=== PATIENT | female | born 1950 | race Two or more races ===

== ENCOUNTER 2024-05-21 15:19 | Emergency (ER) | payer OTHER ==
[~2024-05-21] VITALS: Ht 162.6 cm; Wt 61.2 kg
== END 2024-05-21 18:41 | disposition home or self-care (01) ==
LOC: ER 15:22
DX: L08.9 Local infection of the skin and subcutaneous tissue, unspecified (principal); T14.8XXA Other injury of unspecified body region, initial encounter; S80.812A Abrasion, left lower leg, initial encounter; W19.XXXA Unspecified fall, initial encounter; Y93.89 Activity, other specified; Y92.89 Other specified places as the place of occurrence of the external cause; Y99.8 Other external cause status; Z88.2 Allergy status to sulfonamides

== ENCOUNTER 2024-06-06 14:40 | Emergency (ER) | payer OTHER ==
[~2024-06-06] VITALS: Ht 162.6 cm; Wt 56.7 kg
[2024-06-06] MEDS ORDERED: ATORVASTATIN CA20 MG PO (15:09)
[2024-06-06] MEDS ORDERED: FLUOXETINE HCL20 MG PO (15:09)
[2024-06-06] MEDS ORDERED: DONEPEZIL HCL5 MG PO (15:09)
[2024-06-06] MEDS ORDERED: BUSPIRONE HCL10 MG PO (15:09)
[2024-06-06 16:15] LABS: HEMOGLOBIN 11.4 g/dL (12.0-15.00); MEAN CELL VOLUME 91.3 fL (80.00-100.00); MEAN CORPUSCULAR HEMOGLOBIN 31.6 pg (27.00-32.0); MEAN CORPUSCULAR HGB CONC 34.6 g/dl (32.0-36.0); PLATELET COUNT 324 K/uL (150-450); RED BLOOD COUNT 3.61 M/uL (4.00-6.00); RED CELL DISTRIBUTION WIDTH 13.9 % (11.5-14.5)
[2024-06-06] MEDS ORDERED: KETOROLAC TROMETHAMINE 30 MG VIAL IM STA (17:09)
[2024-06-06] MEDS ORDERED: DEXAMETHASONE SODIUM PHOSPHATE 4 MG/ML VIAL IM STA (17:09)
[2024-06-06] MEDS ORDERED: KETOROLAC TROMETHAMINE 30 MG VIAL ONE (17:22)
[2024-06-06] MEDS ORDERED: DEXAMETHASONE SODIUM PHOSPHATE 4 MG/ML VIAL ONE (17:23)
== END 2024-06-06 17:33 | disposition home or self-care (01) ==
LOC: ER 14:42
DX: B34.9 Viral infection, unspecified (principal); Z20.822 Contact with and (suspected) exposure to COVID-19; Z88.2 Allergy status to sulfonamides